=== PATIENT | male | born 1970 | race Caucasian/White ===

== ENCOUNTER 2018-02-11 00:16 | Outpatient (CLI) | payer MEDICAID, SELFPAY ==
--- NOTE | 2018-02-11 09:37 | DI.RAD_ITS ---
SYMPTOM/DIAGNOSIS: LT SHOULDER PAIN, INJECTION, M25.512 LEFT SHOULDER INJECTION: Fluoroscopy Time: 3 seconds Fluoroscopy was utilized by Dr. Yusuf during the performance of a left shoulder injection. Please refer to the procedure report for complete details.
[2018-02-11] MEDS: Omnipaque 300 MG/ML 10 ML BTL IJ (10:27)
[2018-02-11] MEDS: methylPREDNISolone ACETATE 80 MG/ML VIAL IM (10:28)
[2018-02-11] MEDS: Bupivacaine 0.5% Pres-Free 10 ML VIAL 5 ML IJ (10:29)
--- NOTE | 2018-02-11 11:48 | W.PROCNOTE ---
Date of service: 02/11/18 Time of Service: 11:48 Procedure Note Date of procedure: 02/11/18 Procedure: Left Shoulder Injection Surgeon/Proceduralist/Physician: Simon Yusuf Procedure Diagnosis: Left Shoulder Adhesive Capsulitis Procedure Indications: Hermilo has had persistent pain of the RIGHT shoulder with limited range of motion. Noninvasive measures have been tried. To serve as both diagnostic and therapeutic, an injection under fluoroscopy was recommended. I had discussed the risks of the procedure and the patient elected to proceed. Procedure Description: Hermilo was greeted in the flouroscopy room. The correct side was identified and the consent was reviewed with the patient and signed. The patient was then placed in the supine position on the fluoroscopy table. The RIGHT shoulder was then prepped with Chloraprep. The anterior injection starting point was identiifed by bony landmarks and fluoroscopy. The skin and soft tissue in the tract of the injection was anesthetized with 1% Lidocaine. A spinal needle was then inserted deep into the shoulder joint at the level of the recess between the glenoid and superior humeral head. A small amount of Omnipaque solution was injected to confirm intraarticular placement. Once confirmed, the shoulder was injected with 4cc of 0.5% Bupivicaine and 80mg of Depo-Medrol. A bandaid was placed on the injection site. The patient tolerated the procedure well and noted improvement in pre-injection pain.
--- NOTE | 2018-02-13 06:08 | W.PROCNOTE ---
Date of service: 02/11/18 Time of Service: 11:48 Procedure Note Date of procedure: 02/11/18 Procedure: Left Shoulder Injection - CORRECTED NOTE Surgeon/Proceduralist/Physician: Simon Yusuf Procedure Diagnosis: Left Shoulder Adhesive Capsulitis Procedure Indications: Hermilo has had persistent pain of the LEFT shoulder. Noninvasive measures have been tried. To serve as both diagnostic and therapeutic, an injection under fluoroscopy was recommended. I had discussed the risks of the procedure and the patient elected to proceed. Procedure Description: Correct was greeted in the fluoroscopy room. The correct side was identified and the consent was reviewed with the patient and signed. The patient was then placed in the supine position on the fluoroscopy table. The LEFT shoulder was then prepped with Chloraprep. The anterior injection starting point was identiifed by bony landmarks and fluoroscopy. The skin and soft tissue in the tract of the injection was anesthetized with 1% Lidocaine. A spinal needle was then inserted deep into the shoulder joint at the level of the recess between the glenoid and superior humeral head. A small amount of Omnipaque solution was injected to confirm intraarticular placement. Once confirmed, the shoulder was injected with 4cc of 0.5% Bupivicaine and 80mg of Depo-Medrol. A bandaid was placed on the injection site. The patient tolerated the procedure well and noted improvement in pre-injection pain.
== END 2018-02-11 00:36 ==
PROVIDERS: PCP Family Medicine; Visit Provider Student in an Organized Health Care Education/Training Program
DX: M25.512 Pain in left shoulder (principal); M25.812 Other specified joint disorders, left shoulder
CPT/HCPCS: 20610; 77002; J1040

== ENCOUNTER 2018-03-23 01:15 | Outpatient (CLI) | payer MEDICAID, SELFPAY ==
[2018-03-23 11:01] LABS: ALT 46 U/L (12-78); Cholesterol 282 mg/dL (50-200); HDL Cholesterol 43 mg/dL (40-60); LDL CHOLESTEROL 206 mg/dL (<100); Triglyceride 203 mg/dL (30-150)
== END 2018-03-23 01:35 ==
PROVIDERS: PCP Family Medicine; Visit Provider Family Medicine
DX: E78.5 Hyperlipidemia, unspecified (principal)
CPT/HCPCS: 36415; 80061; 83721; 84460

== ENCOUNTER 2018-08-04 02:10 | Outpatient (CLI) | payer MEDICAID, SELFPAY ==
[2018-08-04 09:43] LABS: ALT 39 U/L (12-78); Cholesterol 170 mg/dL (50-200); HDL Cholesterol 36 mg/dL (40-60); LDL CHOLESTEROL 112 mg/dL (<100); Triglyceride 144 mg/dL (30-150)
== END 2018-08-04 02:30 ==
PROVIDERS: PCP Family Medicine; Visit Provider Family Medicine
DX: E78.5 Hyperlipidemia, unspecified (principal)
CPT/HCPCS: 36415; 80061; 83721; 84460

== ENCOUNTER 2018-12-28 01:27 | Outpatient (CLI) | payer MEDICAID, SELFPAY ==
[2018-12-28 10:02] LABS: ALT 42 U/L (12-78); AST 24 U/L (15-37); Albumin 3.9 g/dL (3.4-5.0); Alkaline Phosphatase 72 U/L (46-116); Anion Gap 11.4 mmol/L (3-11); BUN 10 mg/dL (7-18); Bilirubin, Total 0.5 mg/dL (0.2-1.0); CO2 25.6 mmol/L (21.0-32.0); CREATININE 0.76 mg/dL (0.70-1.30); Calcium 9.4 mg/dL (8.5-10.1); Calculated LDL 109 mg/dL; Chloride 104 mmol/L (98-107); Cholesterol 173 mg/dL (50-200); Glucose 101 mg/dL (70-100); HDL Cholesterol 34 mg/dL (40-60); Potassium 4.7 mmol/L (3.5-5.1); Sodium 141 mmol/L (136-145); Total Protein 7.1 g/dL (6.4-8.2); Triglyceride 152 mg/dL (30-150)
== END 2018-12-28 01:47 ==
PROVIDERS: PCP Family Medicine; Visit Provider Family Medicine
DX: E78.5 Hyperlipidemia, unspecified (principal)
CPT/HCPCS: 36415; 80053; 80061; 83721

== ENCOUNTER 2019-01-18 01:03 | Outpatient (CLI) | payer MEDICAID, SELFPAY ==
--- NOTE | 2019-01-18 10:54 | DI.RAD_ITS ---
SYMPTOM/DIAGNOSIS: RT FOOT PAIN, LOCALIZED 5TH METATARSAL HEAD M79.671 RIGHT FOOT: 01/18 Three views were obtained. There are mild degenerative changes of the joints of the mid foot and the IP joints. No other significant bony or soft tissue abnormality seen.
== END 2019-01-18 01:23 ==
PROVIDERS: PCP Family Medicine; Visit Provider Family Medicine
DX: M79.671 Pain in right foot (principal); M19.071 Primary osteoarthritis, right ankle and foot
CPT/HCPCS: 73630

== ENCOUNTER 2019-07-26 02:26 | Outpatient (CLI) | payer MEDICAID, SELFPAY ==
[2019-07-26 09:06] LABS: HCT 49.8 % (40.0-50.0); HGB 16.9 g/dL (13.5-17.5); Mean Corp. HGB Concentration 33.9 g/dL (32.0-36.0); Mean Corpuscular Hemoglobin 31.8 pg (27.0-33.0); Mean Corpuscular Volume 93.6 fL (80-95); Mean Platelet Volume 9.3 fL (8.0-11.0); Platelet Count 280 x1000/uL (130-400); RBC 5.32 m/cumm (4.50-6.00)
[2019-07-26 09:10] LABS: Bilirubin Negative (Negative); Blood Trace-intact (Negative); Clarity Clear (Clear); Glucose Negative (Negative); Ketones Negative (Negative); Leukocyte Esterase Negative (Negative); Nitrite Negative (Negative); Specific Gravity 1.025 (1.005-1.025); Urobilinogen 0.2 EU/dL (Up TO 0.2)
[2019-07-26 09:27] LABS: Bacteria Rare HPF (Negative); Epithelial Cells Few HPF (Negative); Other Cells Few Yeast (Negative); RBC 0-2 HPF (0-2)
[2019-07-26 09:28] LABS: C & S Indicated? Yes; Casts Negative LPF (Negative); Crystals Negative HPF (Negative); Mucus Moderate (Negative)
[2019-07-26 10:19] LABS: ALT 39 U/L (16-63); AST 21 U/L (15-37); Albumin 4.1 g/dL (3.4-5.0); Alkaline Phosphatase 67 U/L (46-116); Anion Gap 8.5 mmol/L (3-11); BUN 10 mg/dL (7-18); Bilirubin, Total 0.5 mg/dL (0.2-1.0); CO2 27.5 mmol/L (21.0-32.0); Calcium 9.4 mg/dL (8.5-10.1); Calculated LDL 98 mg/dL (<100); Chloride 105 mmol/L (98-107); Cholesterol 170 mg/dL (<200); Glucose 95 mg/dL (74-106); HDL Cholesterol 40 mg/dL (40-60); Potassium 4.7 mmol/L (3.5-5.1); Sodium 141 mmol/L (136-145); Total Protein 7.3 g/dL (6.4-8.2); Triglyceride 162 mg/dL (<150)
== END 2019-07-26 02:46 ==
PROVIDERS: PCP Family Medicine; Visit Provider Family Medicine
DX: E78.5 Hyperlipidemia, unspecified (principal); K21.9 Gastro-esophageal reflux disease without esophagitis; R39.89 Other symptoms and signs involving the genitourinary system; R82.998 Other abnormal findings in urine
CPT/HCPCS: 36415; 80053; 80061; 85027; 81003; 81015; 87086

== ENCOUNTER 2020-08-28 03:40 | Outpatient (CLI) | payer MEDICAID, SELFPAY ==
[2020-08-28 09:44] LABS: Hemoglobin A1C 5.8 % (<5.7)
[2020-08-28 10:22] LABS: Calculated LDL 98 mg/dL (<100); Cholesterol 165 mg/dL (<200); HDL Cholesterol 44 mg/dL (40-60); Triglyceride 119 mg/dL (<150)
[2020-08-28 17:47] LABS: PSA, Screening 1.1 ng/mL (0.0-2.5)
== END 2020-08-28 03:41 | disposition home or self-care (01) ==
LOC: LBO 03:41
PROVIDERS: Nurse Practitioner Family; PCP Family Medicine; Visit Provider Family Medicine
DX: E78.5 Hyperlipidemia, unspecified (principal); Z13.1 Encounter for screening for diabetes mellitus; Z12.5 Encounter for screening for malignant neoplasm of prostate
CPT/HCPCS: 36415; 80061; 84153; 83036

== ENCOUNTER 2020-12-31 08:59 | Day surgery (SDC) | payer MEDICAID, SELFPAY ==
--- NOTE | 2020-12-31 06:55 | W.COLOREPORT ---
Date of service: 12/31/20 Time of Service: :53 Colonoscopy Report Date of procedure: 12/31/20 Pre-op diagnosis general: Colon Cancer Screening, Family history of colon cancer Post-op diagnosis procedure note: other (small polyp and mild diverticulosis) Procedure: Colonoscopy with polypectomy Surgeon: Lashawn Condon Anesthesia Type: MAC (ASA 2/Dianne Gimenez, MORELIA) Estimated blood loss (mL): 2 Pathology: other (Transverse polyp) Complications: None Disposition: same day Indications: The patient is here for Colonoscopy pre-op. He reports his last screening was in 2004 at [facility], results unknown. He reports a family history of colon cancer in his Mother in her 60s and Father in his 40s. He has not had any bowel habit changes. Given patient history of allergic reaction to anesthesia, will request anesthesia consult. Patient reports this will help reduce his anxiety around the procedure as well. -Discussed colonoscopy bowel prep as well as the procedure. Discussed possible complications of the procedure to include bleeding, pain, perforation, missed small lesion/polyp, sore throat, aspiration and adverse reaction to the medications. Questions were answered to patient?s satisfaction. No guarantees were implied or given. Prep: Miralax/Dulcolax Procedure Start Time: :53 Procedure End Time: 10:15 Retraction Time: 14 minutes Findings: One small polyp, mild diverticulosis of the sigmoid colon Procedure Description: After informed consent was obtained the patient was taken to the procedure room and placed in a left decubitous position. Monitors were applied and a time out was done. The patients name, date of , procedure, allergies to medications and metal in their body was reviewed. The patient was then sedated. Once sedated and comfortable a rectal exam was done. External exam was normal. Internal exam revealed a normal sphincter tone and no palpable masses. The prostate felt smooth. The scope was then introduced and retro-flexed. No internal hemorrhoids, polyps or masses were identified on retro-flexion. The scope was then advanced to the cecum without difficulty. The ileocecal vlave and appendiceal orifice were identified. The prep was adequate. The scope was then slowly retracted over 14 minutes back into the rectum. Polyps were removed with cold forceps in the transverse colon. There was mild sigmoid diverticulosis noted. The scope was removed and the patient was woken up and taken back to Same day surgery in stable condition. The patient tolerated the procedure well and there were no immediate complications. Follow up: The patient should follow up in 5 years unless they develop changes in bowel habits or other new gastrointestinal complaints.
--- NOTE | 2020-12-31 06:56 | W.PM.DSUDISC ---
Discharge Plan Disposition Patient Disposition: HOME Condition: Good Discharge Details Reason For Visit: Colon cancer screening Attending Provider: Lashawn Condon Primary Care Provider: Lex Luther Home Meds and New Rx's Prescriptions: Continued CBD 40 PO PRN RF: 0 albuterol sulfate [Ventolin HFA] 90 mcg/actuation HFA aerosol inhaler 2 inh IH Q4H Qty: 18 RF: 5 rosuvastatin 5 mg tablet 5 mg PO DAILY Qty: 90 RF: 4 fluticasone propionate 50 mcg/actuation [place],Suspension 1 spray INTRANASAL DAILY RF: 0 Discontinued polyethylene glycol 3350 17 gram/dose powder 238 g PO ONCE Qty: 238 RF: 0 bisacodyl [Dulcolax (bisacodyl)] 5 mg tablet,delayed release (DR/EC) 5 mg PO ONCE Qty: 4 RF: 0 Discharge Instructions Additional Instructions: Findings: one small polyp diverticulosis Follow up: 5 years Please call if you develop: fevers >101.5 Nausea or Vomiting Abdominal pain that is not transient Rectal bleeding that is more then a tbsp A hard abdomen and inability to pass gas DAY SURGERY UNIT POST ENDOSCOPY INSTRUCTIONS Instructions for everyone who is given Anesthesia: For your safety, please do the following for the next 24 Hours: a. Do not drive or operate dangerous equipment b. Do not drink alcohol beverages or use any recreational drugs for the first 24 hours or while taking pain medications. The medications in your body may have a reaction that can be dangerous. c. Do not make any important decisions or sign any important papers 1. Generally there are no restrictions on your activity after a day or so has gone by, but you may feel a bit fatigued for a few days. 2. After you arrive home you may have a light meal and return to a normal diet as you can tolerate it without feeling sick to your stomach. 3. After surgery, you may feel pain or discomfort. This should be only transient, but if it persists please contact your doctor. 4. If there are any questions regarding the findings of your procedure, please feel free to contact your doctor. 6. If you are unable to contact your doctor with a problem, contact the hospital at [phone]. 7. Continue all your regular medications unless directed otherwise. I understand the above instructions and have no questions. Signature of Patient or Responsible Adult Escort Date/Time Name of Responsible Adult Escort Signature of Nurse Date/Time Activity:: Activity as Tolerated Diet:: As Tolerated Discharge Orders Discharge Orders: Discharge Order (Routine); Ordered 12/31/20 Ordered By: Lashawn Condon
[2020-12-31 09:24] VITALS: BP 134/78; PULSE 99; RESP 18; TEMP 36.6; O2SAT 98
--- NOTE | 2020-12-31 09:31 | W.ANESPRE ---
General Info Date of Service Date Performed: 12/31/20 Height: 6 ft 0.05 in Weight: 114.8 kg Body Mass Index (BMI): 34.2 Surgical Procedure: Operation Date: 12/31/20 09:50 Proposed Procedures Side Surgeon mars Condon MD Meds Allergies and Home Medications Allergies Allergy/AdvReac Type Severity Reaction Status Date / Time alcohol Allergy Severe joint Verified 12/31/20 09:21 ache all over body duloxetine HCl Allergy Severe Hives, Verified 12/31/20 09:21 [From Cymbalta] insomnia fluoxetine Allergy Severe Hives, Verified 12/31/20 09:21 insomnia gabapentin [From Neurontin] Allergy Severe hives, Verified 12/31/20 09:21 tongue swelling montelukast Allergy Severe HIVES Verified 12/31/20 09:21 nabumetone [From Relafen] Allergy Severe over Verified 12/31/20 09:21 sediation paroxetine Allergy Severe Hives Verified 12/31/20 09:21 pregabalin [From Lyrica] Allergy Severe Hives, Verified 12/31/20 09:21 swollen tongue, cough up blood varenicline tartrate Allergy Severe tongue Verified 12/31/20 09:21 [From Chantix] swelling, hives, coughing up blood acetaminophen [From Tylenol] Allergy Intermediate Hives Verified 12/31/20 09:21 buspirone Allergy Mild rash Verified 12/31/20 09:21 propoxyphene napsylate Allergy Unknown Verified 12/31/20 09:21 [From Darvocet-N] rofecoxib [From Vioxx] Allergy Unknown Verified 12/31/20 09:21 sertraline HCl [From Zoloft] Allergy Unknown Verified 12/31/20 09:21 trazodone AdvReac HIVES Verified 12/31/20 09:21 Home Medication Medication Instructions Recorded Cbd 40 PO PRN 12/08/17 albuterol sulfate 90 mcg/actuation 2 inh IH Q4H #18 gm 10/17/20 aerosol inhaler rosuvastatin 5 mg tablet 5 mg PO DAILY #90 tab 10/17/20 bisacodyl 5 mg tablet,delayed 5 mg PO ONCE #4 tab 12/20/20 release polyethylene glycol 3350 17 238 g PO ONCE #238 g 07/22/21 gram/dose oral powder fluticasone propionate 1 spray INTRANASAL DAILY 12/28/20 Current Visit Medications: Current Medications Generic Name Dose Route Start Last Admin Trade Name Freq PRN Reason Stop Dose Admin Hyoscyamine Sulfate 0.125 mg 12/31/20 06:57 Hyoscyamine 0.125 Mg Sl/Oral/Chew SL DIRECTED PRN Ringer's Solution 1,000 mls @ 80 mls/hr 12/31/20 06:00 IV 01/27/21 23:59 INFUSION COUNTS INCLUDE 234 BEDS AT THE [facility] IV Miscellaneous Supplies 1 each 12/31/20 06:00 Iv Access IV 01/27/21 23:59 DIRECTED JENNI Ondansetron HCl 4 mg 12/31/20 06:57 Ondansetron 4 Mg/2 Ml Vial IVP Q4H PRN PRN Nausea / Vomiting Sodium Chloride 0 ml 12/31/20 06:00 Normal Saline Flush 10 Ml Syr IV 01/27/21 23:59 PRN PRN Sodium Chloride 0 ml 12/31/20 06:00 Normal Saline 10 Ml Vial IJ 01/27/21 23:59 DIRECTED PRN Sterile Water 0 ml 12/31/20 06:00 Water,Injection,Sterile 10 Ml Vial IJ 01/27/21 23:59 DIRECTED PRN PFSH Active Problems Active Problems: Problem Status Onset Code Diabetes mellitus screening Z13.1 Prostate cancer screening Z12.5 Family history of colorectal cancer Z80.0 Insomnia G47.00 RACHEAL (generalized anxiety disorder) F41.1 Poor dentition K08.9 Tooth abscess K04.7 Vitamin B12 deficiency 12/08/17 E53.8 Trigger finger, right middle finger 01/04/18 M65.331 Smoker F17.200 Hyperlipidemia 12/15/17 E78.5 History of Lyme disease 12/08/17 Z86.19 GERD (gastroesophageal reflux disease) K21.9 Depression F32.9 Chronic joint pain M25.50, G89.29 Chronic back pain M54.9, G89.29 BMI 37.0-37.9, adult Z68.37 Asthma J45.909 Anxiety F41.9 Adhesive capsulitis of left shoulder 11/13/17 M75.02 Medical History Medical History Family history of colorectal cancer Mother of colon cancer at age 64 Poor dentition Surgical History Surgical History Achilles tendon repair 2007 Tobacco Smoking/Tobacco Use Status: Current-Occasional Tobacco Type: cigarettes Smoking cigarettes per day: 5 Years smoked: 30 Tobacco: How many years used: 20 Passive smoking exposure: Yes Quit Status: considering quitting Second hand exposure: Yes Alcohol Alcohol Intake: never Substance Use Substance use: Daily Substance use type: marijuana Details: Smoked yesterday morning. Vital Signs and Lab Results Vital Signs Most Recent Vital Signs in EMR: Most Recent Vital Signs Temp Pulse Resp BP Pulse Ox 36.6 C 99 H 18 134/78 98 12/31/20 09:24 12/31/20 09:24 12/31/20 09:24 12/31/20 09:24 12/31/20 09:24 Lab Results Blood Type / Crossmatch: No Data to Display Complete Blood Count: No Data to Display Complete Metabolic Panel: No Data to Display Liver Function Panel: No Data to Display Coagulation Panel: No Data to Display Cardiac Panel: No Data to Display Arterial Blood Gas: No Data to Display Venous Blood Gas: No Data to Display Pancreas Panel: No Data to Display Thyroid Panel: No Data to Display Infectious Disease: No Data to Display Blood Cultures: No Data to Display Toxicology Panel: No Data to Display Anesthesia Assessment and Plan Anesthesia History Personal History: No History of Anesthesia Complications Family History: No Family History of Anesthesia Complications Exercise Tolerance Exercise Tolerance: Metabolic Equivalents>4 Pertinent Negatives Pertinent Negatives: No Symptoms of GERD, No Major Cardiovascular Symptoms or Complaints and No Major Pulmonary Symptoms or Complaints Cardiac & Pulmonary Exam Cardiac Exam: Normal S1/S2 Heart Sounds Pulmonary Exam: Clear Bilateral Breath Sounds Airway Exam Known Difficult Airway: No Mallampati Class: 2 Mouth Opening: Normal (> 3cm) Thyromental Distance: Greater than 3 cm Facial Hair: Full [place] Neck Range of Motion: Full ROM Neck Circumference: Normal Teeth Condition: Dental Caries Airway Comments: Known TMJ ASA Classification ASA Score: ASA 2 Emergency Case?: No NPO Status NPO Status: NPO Clears >2 hours, Solids >8 hours Anesthesia Plan Resuscitation Status: Full Code Anesthesia Technique: General Anesthesia Airway Planned: Natural Airway Monitors Used: Standard Monitors
[2020-12-31] MEDS: Lactated Ringers 1,000 ML 80 ML IV (09:35)
[2020-12-31 09:37] VITALS: BMI 34.2
--- NOTE | 2020-12-31 10:09 | BOWEL_PTH ---
PATIENT: Hermilo Morton LOC: [facility] U#:[id number] AGE/SX: 50/M ROOM: RE12/31/[address]: Lashawn Condon MD : 1970 BED: DIS: 12/31/2020 SPEC #: [id number] RECD: 12/31/20 12:58 STATUS: NIKKI REQ #: [id number] ANIYA: 12/31/20 10:[address]: Lashawn Condon DEPT: Surgical Specimen RECD BY: Marycarmen Dorsey ENTERED: 12/31/20 12:58 SP TYPE: Bowel OTHR DR: Lex Luther, REBEKAH Tissues: 1 - BIOPSY BOWEL Procedures: GROSS AND MICRO LEVEL 4 Comments: [id number]
[2020-12-31 10:20] VITALS: BP 101/58; PULSE 72; RESP 15; TEMP 36.5; O2SAT 97
--- NOTE | 2020-12-31 10:44 | W.ANESPOSTOP ---
Postoperative Evaluation Date, Time and Location Date Performed: 12/31/20 Time Performed: 10:25 Patient Location: Day Surgery Unit Vital Signs Most Recent Imported Vital Signs: Most Recent Vital Signs Temp Pulse Resp BP Pulse Ox 36.5 C 72 15 101/58 L 97 12/31/20 10:20 12/31/20 10:20 12/31/20 10:20 12/31/20 10:20 12/31/20 10:20 Pain Score Most Recent Pain Score: Most Recent Pain Score Pain Level 0 12/31/20 09:34 Assessment Mental Status: Awake (Alert & Oriented to Patient Baseline) Airway and Respiratory Function: Patent airway with normal (patient baseline) respiratory exam Cardiovascular Function: Hemodynamically Stable Hydration Status: Adequately Hydrated Nausea & Vomiting: No Nausea or Vomiting Pain: Pt. Denies Any Pain Peripheral Nerve Block: Patient did not receive a nerve block
[2020-12-31 10:49] VITALS: BP 135/80; PULSE 82; RESP 19; TEMP 36.5; O2SAT 98
== END 2020-12-31 11:13 | disposition home or self-care (01) ==
LOC: SUR 08:59
PROVIDERS: PCP Nurse Practitioner Family; Visit Provider Surgery
PROC: 0DJD8ZZ Inspection of Lower Intestinal Tract, Via Natural or Artificial Opening Endoscopic (ICD-10-PCS; CPT 45378; principal; 2020-12-31 09:45)
DX: Z12.11 Encounter for screening for malignant neoplasm of colon (principal); K62.5 Hemorrhage of anus and rectum; Z80.0 Family history of malignant neoplasm of digestive organs; K57.30 Diverticulosis of large intestine without perforation or abscess without bleeding
CPT/HCPCS: 45380; 88305; J2001; J2704

== ENCOUNTER 2021-02-12 01:56 | Outpatient (CLI) | payer MEDICAID, SELFPAY ==
--- NOTE | 2021-02-12 07:00 | DI.MRI_ITS ---
Exam(s) MR LUMBAR SPINE WO EXAM: MR LUMBAR SPINE WO CLINICAL HISTORY: continued low back pain,DORSALGIA,M54.9. TECHNIQUE: Multiplanar multisequence MRI of the Lumbar spine was performed. COMPARISON: None FINDINGS: Bones: The last intervertebral disc space is designated the L5/S1 level for the numbering purpose of this examination. The vertebral body heights are well maintained. Alignment is satisfactory. No andrew spicious lesions. Cord: The conus tip ends at the T12 level. It is of normal size and signal intensity. T12-L1: No disc herniations or bulges are present. L1-2: No disc herniations or bulges are present. L2-3: No disc herniations or bulges are present. L3-4: No disc herniations or bulges are present. L4-5: Moderate to severe loss of disc height. Small endplate osteophytes and mild concentric disc b ulging. Degenerative signal changes in the endplates. Mild facet degenerative changes and ligamento us hypertrophy. No significant neural foraminal narrowing or central canal stenosis. L5-S1: Moderate loss of disc height. Small endplate osteophytes and degenerative signal changes in the endplates. Mild concentric disc bulging. Tiny central disc protrusion without significant impin gement. Mild facet degenerative changes. No significant central canal stenosis or neural foraminal narrowing. The visualized SI joints and sacrum are well maintained. The paraspinal soft tissues are unremarkable . IMPRESSION: Degenerative disc changes at L4-5 and L5-S1 without significant neural foraminal narrowing or central canal stenosis. DATA REPOSITORY:
== END 2021-02-12 02:16 ==
PROVIDERS: PCP Nurse Practitioner Family; Visit Provider Nurse Practitioner Family
DX: G89.29 Other chronic pain (principal); M54.9 Dorsalgia, unspecified; M47.896 Other spondylosis, lumbar region; M47.897 Other spondylosis, lumbosacral region
CPT/HCPCS: 72148

== ENCOUNTER 2021-02-20 10:52 | Outpatient (CLI) | payer MEDICAID, SELFPAY ==
--- NOTE | 2021-02-20 10:45 | DI.RAD_ITS ---
Exam(s) XR SHOULDER LT COMPLETE 2+V EXAM: XR SHOULDER LT COMPLETE 2+V CLINICAL HISTORY: LEFT SHOULDER PAIN. TECHNIQUE: 2D digital imaging was performed. COMPARISON: No exams were available for comparison FINDINGS: Two views of the left shoulder reveal no evidence of fracture or dislocation nor obvious degenerative changes. Subacromial space height is maintained in there are no abnormal soft tissue calcifications within this space nor elsewhere around the shoulder. Bone density is normal. No osseous lesions. Coracoid process appears unremarkable. No os acromiale. IMPRESSION: DATA REPOSITORY: RADIATION DOSE DELIVERED:
== END 2021-02-20 10:53 | disposition home or self-care (01) ==
LOC: DIORS 10:52
PROVIDERS: PCP Nurse Practitioner Family; Referring Provider Nurse Practitioner Family; Visit Provider Student in an Organized Health Care Education/Training Program
DX: M25.512 Pain in left shoulder (principal); G89.29 Other chronic pain
CPT/HCPCS: 73030

== ENCOUNTER 2022-03-18 03:36 | Outpatient (CLI) | payer MEDICAID, SELFPAY ==
[2022-03-18 11:58] LABS: Hemoglobin A1C 5.5 % (<5.7)
[2022-03-18 12:31] LABS: Vitamin B12 651 pg/mL (193-986)
== END 2022-03-18 03:37 | disposition home or self-care (01) ==
LOC: LBO 03:36
PROVIDERS: PCP Nurse Practitioner Family; Visit Provider Nurse Practitioner Family
DX: E53.8 Deficiency of other specified B group vitamins (principal); R73.09 Other abnormal glucose
CPT/HCPCS: 36415; 82607; 83036

== ENCOUNTER 2024-04-14 01:57 | Outpatient (CLI) | payer MEDICAID, SELFPAY ==
[2024-04-14 13:42] LABS: Hemoglobin A1C 5.5 % (<5.7)
[2024-04-14 13:46] LABS: Calculated LDL 92 mg/dL (<100); Cholesterol 166 mg/dL (<200); HDL Cholesterol 44 mg/dL (40-60); Triglyceride 154 mg/dL (<150); Vitamin B12 572 pg/mL (193-986)
== END 2024-04-14 01:58 | disposition home or self-care (01) ==
LOC: LOS 01:57
PROVIDERS: PCP Nurse Practitioner Family; Visit Provider Nurse Practitioner Family
DX: E78.2 Mixed hyperlipidemia (principal); E53.8 Deficiency of other specified B group vitamins; Z13.1 Encounter for screening for diabetes mellitus
CPT/HCPCS: 36415; 80061; 82607; 83036

== ENCOUNTER 2025-04-04 01:21 | Outpatient (CLI) | payer MEDICAID, SELFPAY ==
[2025-04-04 14:22] LABS: Hemoglobin A1C 5.6 % (<5.7)
[2025-04-04 14:42] LABS: Cholesterol 150 mg/dL (<200); HDL Cholesterol 41 mg/dL (>or=40); Vitamin B12 590 pg/mL (193-986)
[2025-04-04 23:18] LABS: PSA, Screening 1.2 ng/mL (<=3.5)
== END 2025-04-04 01:22 | disposition home or self-care (01) ==
LOC: LOS 01:21
PROVIDERS: PCP Nurse Practitioner Family; Visit Provider Nurse Practitioner Family
DX: Z12.5 Encounter for screening for malignant neoplasm of prostate (principal); Z13.220 Encounter for screening for lipoid disorders; E53.8 Deficiency of other specified B group vitamins; Z13.1 Encounter for screening for diabetes mellitus
CPT/HCPCS: 36415; 80061; 84153; 82607; 83036

== ENCOUNTER 2025-04-12 13:56 | Emergency (ER) | payer MEDICAID, SELFPAY ==
[2025-04-12 13:59] VITALS: BP 146/85; PULSE 98; RESP 20; TEMP 36.8; O2SAT 94
[2025-04-12 14:49] VITALS: BP 146/85; PULSE 98; RESP 20; TEMP 36.8; O2SAT 94
--- NOTE | 2025-04-12 15:06 | W.ED.GENAD ---
Discharge Plan Disposition Patient Disposition: Home Condition: Stable Discharge Details Clinical Impression: Sixth cranial nerve palsy Primary Care Provider: Lex Luther ED Provider: Dedrick Obrien Home Meds and New Rx's Prescriptions: Continued fluticasone propionate 50 mcg/actuation spray,suspension 1 spray INTRANASAL DAILY Qty: 16 3RF albuterol sulfate [Ventolin HFA] 90 mcg/actuation HFA aerosol inhaler 2 inh IH Q4H Qty: 18 5RF clonazepam 0.5 mg tablet 0.5 mg PO BID PRN (Reason: anxiety) Qty: 60 2RF All Day Allergy (cetirizine) 10 mg capsule 10 mg PO DAILY PRN diphenhydramine HCl [Benadryl] 25 mg capsule 25 mg PO QHS PRN loratadine [Allergy Relief (loratadine)] 10 mg tablet 10 mg PO DAILY amitriptyline 25 mg tablet See Rx Instructions PO QHS Qty: 30 2RF Rx Instructions: Take 1/2 (half) tab orally every day at bedtime; CBD 40 PO PRN rosuvastatin 5 mg tablet 5 mg PO DAILY Qty: 90 4RF Discharge Instructions Additional Instructions: Your blood work and MRI Scan did not show any concerning findings at this time. neurology did not feel he needed further emergent workup based on the studies you had done. I am placing referral for you to see [facility] if you do not hear from them you can call their office at [phone]. Return to the emergency department if you develop new symptoms such as high fevers or severe headaches. Stand Alone Forms: Portal Information HPI General Mode of arrival: ambulatory. Date/Time Provider Initiated Documentation: 04/12/25 13:59. Limitations to Documentation: no limitations. Information obtained by: patient. History of Present Illness 54 year old M presents to the emergency department with the chief complaint of double vision, described as moderate, Patient started experiencing this day(s) (1) and it has been constant. No relieving factors improve symptom(s), No exacerbating factors reported . Patient notes no other symptoms.. Patient did receive the following treatments prior to arrival, none Related Data Home Medications Medication Instructions Recorded Confirmed Cbd 40 PO PRN 12/08/17 03/16/25 fluticasone propionate 50 1 spray intranasal DAILY #16 grams 03/06/22 04/12/25 mcg/actuation nasal spray,suspension cetirizine 10 mg capsule (All Day 10 mg PO DAILY PRN 03/14/24 04/12/25 Allergy (cetirizine)) diphenhydramine HCl 25 mg capsule 25 mg PO QHS PRN 03/14/24 04/12/25 (Benadryl) loratadine 10 mg tablet (Allergy 10 mg PO DAILY 03/14/24 04/12/25 Relief (loratadine)) rosuvastatin 5 mg tablet 5 mg PO DAILY #90 tabs 12/19/24 04/12/25 amitriptyline 25 mg tablet See Rx Instructions PO QHS #30 tabs 02/02/25 04/12/25 albuterol sulfate 90 mcg/actuation 2 inh inhalation Q4H shortness of 03/16/25 04/12/25 aerosol inhaler (Ventolin HFA) breath or wheezing #18 grams clonazepam 0.5 mg tablet 0.5 mg PO BID PRN anxiety #60 tabs 03/16/25 04/12/25 Previous Rx's Medication Instructions Recorded fluticasone propionate 50 1 spray intranasal DAILY #16 grams 03/06/22 mcg/actuation nasal spray,suspension rosuvastatin 5 mg tablet 5 mg PO DAILY #90 tabs 12/19/24 amitriptyline 25 mg tablet See Rx Instructions PO QHS #30 tabs 02/02/25 albuterol sulfate 90 mcg/actuation 2 inh inhalation Q4H shortness of 03/16/25 aerosol inhaler (Ventolin HFA) breath or wheezing #18 grams clonazepam 0.5 mg tablet 0.5 mg PO BID PRN anxiety #60 tabs 03/16/25 Allergies Allergy/AdvReac Type Severity Reaction Status Date / Time duloxetine HCl (From Allergy Severe Hives, Verified 04/12/25 14:02 Cymbalta) insomnia fluoxetine Allergy Severe Hives, Verified 04/12/25 14:02 insomnia gabapentin (From Neurontin) Allergy Severe hives, Verified 04/12/25 14:02 tongue swelling montelukast Allergy Severe HIVES Verified 04/12/25 14:02 paroxetine Allergy Severe Hives Verified 04/12/25 14:02 pregabalin (From Lyrica) Allergy Severe Hives, Verified 04/12/25 14:02 swollen tongue, cough up blood varenicline tartrate (From Allergy Severe tongue Verified 04/12/25 14:02 Chantix) swelling, hives, coughing up blood acetaminophen (From Tylenol) Allergy Intermediate Hives Verified 04/12/25 14:02 citalopram Allergy Intermediate Hives Verified 04/12/25 14:02 buspirone Allergy Mild rash Verified 04/12/25 14:02 propoxyphene napsylate (From Allergy Unknown Nausea Verified 04/12/25 14:02 Darvocet-N) rofecoxib (From Vioxx) Allergy Unknown Nausea Verified 04/12/25 14:02 sertraline HCl (From Zoloft) Allergy Unknown nausea Verified 04/12/25 14:02 trazodone Allergy HIVES Verified 04/12/25 14:02 alcohol AdvReac Severe joint Verified 04/12/25 14:02 ache all over body nabumetone (From Relafen) AdvReac Severe over Verified 04/12/25 14:02 sediation General Stated Complaint: EyeProblem ASHLEY: 3 Review of Systems All systems reviewed & are unremarkable except as noted in HPI and below Constitutional Constitutional: Denies chills, Denies fever(s) and Denies weakness Eyes Eyes: Reports diplopia Cardiovascular Cardiovascular: Denies chest pain and Denies dyspnea Respiratory Respiratory: Denies cough and Denies dyspnea Gastrointestinal Gastrointestinal: Denies abdominal pain, Denies nausea and Denies vomiting Neurologic Neurologic: Denies weakness Exam Const General: no acute distress Orientation: alert HENNC Head: normal to inspection Ears: external ears normal General nose exam: external nose normal Mouth: moist mucous membranes Eyes General: appearance normal, both eyes and all related structures Periorbital: periorbital findings normal Eyelids: eyelids normal Conjunctivae: conjunctivae normal Sclera: sclerae normal Pupils: PERRL Neck Neck: normal visual inspection Resp Effort & Inspection: normal respiratory effort and able to speak in complete sentences Cardio Rate: regular rate Skin General skin exam: no rashes or lesions noted Neuro General: patient alert and patient oriented x3 Cranial Nerves: EOM not intact bilaterally Extrem General: normal to inspection Psych Mental Status: mental status grossly normal Course Vital Signs Vital signs: Vital Signs Temperature 36.8 C 04/12/25 13:59 Pulse 98 H 04/12/25 13:59 Respiratory Rate 20 04/12/25 13:59 Blood Pressure 146/85 H 04/12/25 13:59 Pulse Oximetry 94 04/12/25 13:59 Temperature 36.8 C 04/12/25 14:49 Pulse 98 H 04/12/25 14:49 Respiratory Rate 20 04/12/25 14:49 Blood Pressure 146/85 H 04/12/25 14:49 Blood Pressure Position Sitting 04/12/25 14:49 Pulse Oximetry 94 04/12/25 14:49 Oxygen Delivery Method Room Air 04/12/25 14:49 Oxygen Flow Rate 0 04/12/25 14:49 Medical Decision Making 54-year-old male comes in after he states he started having eye discomfort yesterday and this morning woke up and noticed that he had double vision with both eyes open. He says that resolves when he closes either eye. He denies any fevers, headache, eye pain currently. The eyes themselves look normal without any injection of the conjunctive, pupils are equal, there is no periorbital swelling. When testing extraocular eye movements left eye does not move past midline when looking laterally. Otherwise extraocular eye movements are intact. There is no meningismus. Has no weakness in his extremities and normal gait. I did not visualize any papilledema. Is a 22-admit him in the left eye and 20/40 in the right eye. IOP 16 in the left and 17 in the right. Given he Has a cranial nerve palsy in the left eye Will proceed with checking CBC CMP inflammatory markers, Lyme panel, is no headache so I doubt hemorrhage and he has no other findings to suggest entities such as Guillain-Barré. Will obtain MRI of the brain and possible evidence of ischemia/cva labs and imaging unremarkable. Pt stable, I did obtain a neuro consult who evaluated the patient and did not feel further emergent studies were needed and could f/u outpatient with optho. Return preacutions given Differential Diagnosis Differential Diagnosis: Ischemia, cranial 6 palsy Quality:SDOH Health Related Social Needs: Health related social needs details none PFSH All Active Problems (Updated 04/12/25 @ 17:42 by Dedrick Obrien MD) Sixth cranial nerve palsy (Acute) Vertigo (Acute) Environmental allergies (Acute) Cervicalgia (Acute) Impingement syndrome of left shoulder (Acute) Tendinitis of long head of biceps brachii of left shoulder (Acute) Headache (Acute) Family history of colorectal cancer (Acute) Mother of colon cancer at age 64 Insomnia (Acute) RACHEAL (generalized anxiety disorder) (Acute) Poor dentition (Acute) Vitamin B12 deficiency (Acute 12/08/17) Trigger finger, right middle finger (Acute 01/04/18) Smoker (Acute) Hyperlipidemia (Acute 12/15/17) History of Lyme disease (Acute 12/08/17) GERD (gastroesophageal reflux disease) (Acute) Depression (Acute) Chronic joint pain (Acute) Chronic back pain (Acute) BMI 37.0-37.9, adult (Acute) Asthma (Acute) Adhesive capsulitis of left shoulder (Acute 11/13/17) Medical History COVID-19 (~08/29/21) Surgical History History of colonoscopy (~12/2020) Normal, repeat 5 years due to family hx Achilles tendon repair 2006 Family History Mother , 63 Colon cancer Brain cancer Father , 48 Mesothelioma Brother , 63 High cholesterol Heart disease Stroke Brother Bladder cancer High cholesterol Brother Diabetes Social History Smoking/Tobacco Use Status: Current every day Tobacco Type: cigarettes Tobacco: How many years used: 20 Quit status: considering quitting Second Hand Exposure: Yes Smoking risk assessment performed?: Yes Alcohol Intake: never Drug use: Daily Substance use type: marijuana Details: Smoked yesterday morning. Adopted: No Caregiver/Support person: No Foster care: No Household members: none Housing: apartment Number of Children: 0 number of grandchildren: 0 Communication Needs: Corrective Lenses Education Level: college Do you need help understanding health information?: Rarely current occupation: Disabled Pets and animals: No Sexually active: No Do you think of yourself as: straight/heterosexual Current gender identity: male What is your relationship status?: How often do you talk on the phone with friends or family?: never How often do you get together with friends or relatives?: never How often do you attend jehovah's witness or gnosticist services?: decline to answer Do you belong to any clubs or organized social groups?: no Panel score (0-1 are the most socially isolated patients): 0 What type of physical activity do you participate in: none Frequency: does not exercise Audelia/Synagogue: Non scientology Special audelia needs: No Agree to transfusion: Yes Seatbelt use: always Drive intox or ride w/intox electric lift truck driver: No Working smoke detector in home: Yes Fire extinguisher in home: No Carbon monox detector in home: No Firearms in home: No Do you feel safe at home: Yes Do you feel safe in your relationship?: Yes Victim of physical abuse: No Victim of emotional abuse: No Victim of sexual abuse: No Would you like helpful sources: No
[2025-04-12 15:23] LABS: Abs Immature Grans 0.03 10^3/uL (0.0-0.06); HCT 49.5 % (40.0-50.0); HGB 16.8 g/dL (13.5-17.5); Immature Grans % 0.3 %; MCH 30.5 pg (27.0-33.0); MCHC 33.9 % (32.0-36.0); MCV 90 fL (80-95); MPV 9.2 fL (8.0-11.0); Platelet Count 289 10^3/uL (130-400); RBC 5.50 10^6/uL (4.36-5.78); RDW 12.5 % (11.8-14.1); RDW-SD 41.6 fL; WBC 11.55 10^3/uL (4.4-10.8)
[2025-04-12 15:28] LABS: ESR 13 mm/hr (0-20)
[2025-04-12 15:39] LABS: Magnesium 2.0 mg/dL (1.6-2.6)
[2025-04-12 15:40] LABS: ALT 36 U/L (10-49); AST 35 U/L (<34); Albumin 5.0 g/dL (3.4-5.0); Alkaline Phosphatase 73 U/L (46-116); Anion Gap 8.9 mmol/L (3-11); BUN 12 mg/dL (9-23); Bilirubin, Total 0.60 mg/dL (0.2-1.2); CO2 26.1 mmol/L (20.0-31.0); Calcium 10.0 mg/dL (8.3-10.6); Chloride 105 mmol/L (98-107); Glucose 98 mg/dL (74-106); Potassium 3.9 mmol/L (3.5-5.1); Sodium 140 mmol/L (136-145); Total Protein 8.3 g/dL (5.7-8.2)
[2025-04-12 15:43] LABS: TSH (W/Ref FT4) 6.02 uIU/mL (0.55-4.78)
[2025-04-12 15:46] LABS: C-Reactive Protein < 0.50 mg/dL (<=0.50); Hemoglobin A1C 5.7 % (<5.7)
--- NOTE | 2025-04-12 16:15 | DI.MRI_ITS ---
Exam(s) MR BRAIN WO EXAM: MR BRAIN WO CLINICAL HISTORY: CN6 palsy TECHNIQUE: Multiplanar multisequence MRI of the brain was performed. COMPARISON: No exams were available for comparison FINDINGS: CEREBRAL PARENCHYMA: There is no evidence of intracranial hemorrhage, mass effect, or shift of midline structures. There are no extra-axial fluid collections. Ventricles are not enlarged or shifted. There is no significant focal signal abnormality in the cerebellar hemispheres nor within the gennaro, midbrain, and thalami. There is no abnormal signal abnormality in the periventricular white matter. There is no significant focal signal abnormality evident on diffusion imaging to suggest acute ischemic event. SWI: No evidence of microhemorrhages in the brain PITUITARY GLAND: No mass nor parasellar abnormality. No obvious abnormality in the cavernous sinuses. FLOW VOIDS: The expected flow void are noted. No evidence of obvious aneurysm nor obvious vascular malformation. PARANASAL SINUSES: The visualized paranasal sinuses appear unremarkable. No obvious finding ORBITS: No obvious findings. No evidence of dysconjugate gaze, given the history here. IMPRESSION: No significant intracranial findings on this noninfused MRI scan of the brain. Called by myself to ER 04/12/2025 at 4:10 p.m. DATA REPOSITORY:
[2025-04-13 11:01] LABS: Lyme Ab w Rflx to Lyme Confirm Negative (Negative)
[2025-04-15 17:30] LABS: B. miyamotoi PCR Negative (Negative); Babesia divergens/MO-1 Negative (Negative); Ehrlichia muris eauclairensis Negative (Negative)
== END 2025-04-12 18:19 | disposition home or self-care (01) ==
PROVIDERS: Emergency Provider Emergency Medicine; PCP Nurse Practitioner Family
DX: H49.22 Sixth [abducent] nerve palsy, left eye
CPT/HCPCS: 80053; 85652; 87798; 99283; 70551; 83036; 83735; 84439; 84443; 85025; 86140; 86618